=== PATIENT | male | born 1940 | race Caucasian/White ===

== ENCOUNTER 2017-02-10 08:28 | Day surgery (SDC) | payer OTHER ==
[2017-02-06 09:49] VITALS: BMI 29.0
[2017-02-10] MEDS ORDERED: PROPOFOL 20 ML ONE ×2 (09:12)
[2017-02-10] MEDS ORDERED: MIDAZOLAM HCL 2 MG/2 ML SINGLE DOSE VIAL ONE (09:51)
[2017-02-10 10:44] VITALS: PULSE 71
[2017-02-10 10:54] VITALS: BP 128/66; TEMP 98.2
--- NOTE | 2017-02-11 09:56 | PATH ---
Surgical Pathology Report Patient Name: ALEXIS BOLTON [facility]. Rec. #: [id number] /Age/Gender: 1940 (Age: 76) / M Account: [id number] Location: [facility]END[facility] Taken: 02/10/2017 Received: 02/10/2017 Reported: 02/11/2017 Physicians: Rocco Saab M.D. Specimen(s) Received A: BX LEFT COLON B: BX PROXIMAL RIGHT COLON C: BX MID RIGHT COLON D: BX HEPATIC FLEXURE Clinical History History of polyps Polyp Final Diagnosis A. COLON, LEFT, BIOPSY: TUBULAR ADENOMA. B. COLON, PROXIMAL RIGHT, BIOPSY: TUBULAR ADENOMA. C. COLON, MID RIGHT, BIOPSY: TUBULAR ADENOMA. D. COLON, HEPATIC FLEXURE, BIOPSY: TUBULAR ADENOMA. Electronically Signed Haider Kumar M.D. Gross Description A. Received in formalin, labeled "left colon" are 2 orozco, irregular portions of soft tissue averaging 0.2 cm. in greatest dimension. The specimens are submitted in toto in one cassette. B. Received in formalin, labeled "proximal right colon" is a orozco, polypoid portion of soft tissue measuring 0.4 cm. in greatest dimension. The specimen is submitted in toto in one cassette. C. Received in formalin, labeled "mid right colon" are 4 orozco, irregular to polypoid portions of soft tissue ranging from 0.2-0.8 cm. in greatest dimension. The specimens are submitted in toto in one cassette. D. Received in formalin, labeled "hepatic flexure" are 2 orozco, irregular portions of soft tissue measuring 0.2 and 0.3 cm. in greatest dimension. The specimens are submitted in toto in one cassette. 02/10/2017 saudi02/10/2017
== END 2017-02-10 11:30 | disposition home or self-care (01) ==
LOC: FASU-ENDO 08:28
PROVIDERS: ATTEND Internal Medicine Gastroenterology
PROC: 0DBK8ZX Excision of Ascending Colon, Via Natural or Artificial Opening Endoscopic, Diagnostic (ICD-10-PCS; principal; 2017-02-10 09:52)
PROC: 0DBM8ZX Excision of Descending Colon, Via Natural or Artificial Opening Endoscopic, Diagnostic (ICD-10-PCS; 2017-02-10 09:52)
DX: Z86.010 Personal history of colon polyps (principal); D12.2 Benign neoplasm of ascending colon; D12.4 Benign neoplasm of descending colon; K57.30 Diverticulosis of large intestine without perforation or abscess without bleeding
CPT/HCPCS: 88305-TC

== ENCOUNTER 2021-01-15 07:26 | Day surgery (SDC) | payer OTHER ==
[2021-01-10 15:07] VITALS: BMI 29.1
[2021-01-15] MEDS ORDERED: PROPOFOL 20 ML ONE ×4 (07:42)
[2021-01-15] MEDS ORDERED: LIDOCAINE HCL/PF 2% SDV 5ML VIAL ONE (07:42)
[2021-01-15] MEDS ORDERED: MIDAZOLAM HCL 2 MG/2 ML SINGLE DOSE VIAL ONE (08:25)
[2021-01-15 10:33] VITALS: BP 132/78; PULSE 88; TEMP 97.4
== END 2021-01-15 10:33 | disposition home or self-care (01) ==
LOC: FASU-ENDO 07:26
PROVIDERS: ATTEND Internal Medicine Gastroenterology
PROC: 0DBL8ZX Excision of Transverse Colon, Via Natural or Artificial Opening Endoscopic, Diagnostic (ICD-10-PCS; 2021-01-15)
PROC: 0DBM8ZX Excision of Descending Colon, Via Natural or Artificial Opening Endoscopic, Diagnostic (ICD-10-PCS; 2021-01-15)
PROC: 0DBH8ZX Excision of Cecum, Via Natural or Artificial Opening Endoscopic, Diagnostic (ICD-10-PCS; 2021-01-15)
PROC: 0DBK8ZX Excision of Ascending Colon, Via Natural or Artificial Opening Endoscopic, Diagnostic (ICD-10-PCS; 2021-01-15)
PROC: 0DBK8ZX Excision of Ascending Colon, Via Natural or Artificial Opening Endoscopic, Diagnostic (ICD-10-PCS; principal; 2021-01-15 08:31)
DX: Z12.11 Encounter for screening for malignant neoplasm of colon (principal); D12.0 Benign neoplasm of cecum; D12.2 Benign neoplasm of ascending colon; D12.3 Benign neoplasm of transverse colon; D12.4 Benign neoplasm of descending colon; K57.30 Diverticulosis of large intestine without perforation or abscess without bleeding; Z86.010 Personal history of colon polyps
CPT/HCPCS: 88305-TC

== ENCOUNTER 2023-01-23 07:37 | Day surgery (SDC) | payer OTHER ==
[2023-01-17 13:17] VITALS: BMI 23.7
[2023-01-23 09:05] VITALS: TEMP 97.8
[2023-01-23 09:16] VITALS: BP 100/65; PULSE 77; RESP 20
== END 2023-01-23 09:40 | disposition home or self-care (01) ==
LOC: FASU-ENDO 07:37
PROVIDERS: ATTEND Internal Medicine Gastroenterology
PROC: 0DBN8ZX Excision of Sigmoid Colon, Via Natural or Artificial Opening Endoscopic, Diagnostic (ICD-10-PCS; 2023-01-23)
PROC: 0DBH8ZX Excision of Cecum, Via Natural or Artificial Opening Endoscopic, Diagnostic (ICD-10-PCS; 2023-01-23)
PROC: 0DBK8ZX Excision of Ascending Colon, Via Natural or Artificial Opening Endoscopic, Diagnostic (ICD-10-PCS; principal; 2023-01-23 08:23)
DX: Z12.11 Encounter for screening for malignant neoplasm of colon (principal); D12.0 Benign neoplasm of cecum; D12.2 Benign neoplasm of ascending colon; D12.5 Benign neoplasm of sigmoid colon; K57.30 Diverticulosis of large intestine without perforation or abscess without bleeding; Z86.010 Personal history of colon polyps
CPT/HCPCS: 88305-TC